=== PATIENT | female | born 1990 | race Caucasian/White ===

== ENCOUNTER → 2016-07-20 | Outpatient (CLI) | payer OTHER ==
--- NOTE | 2016-07-20 15:57 | DI ---
MRI LUMBAR SPINE SCAN WITHOUT IV CONTRAST, 07/20/2016 12:37 PM: Clinical History: Other complications of spinal and epidural anesthesia during labor and delivery. Previous Exam: None. Technique: Sagittal and axial T2 weighted; sagittal T1 weighted and T2 STIR; and axial PD. The vertebral bodies are of normal height and size. There is disc space narrowing at L1-2 and L2-3 wi th desiccation change. The remaining lumbar disc spaces are of normal height and signal pattern. The cord terminates at T12 and the conus medullaris is normal. The T10-11 through T12-L1 disc spaces are normal. T2-3 and T3-4 disc spaces show mild circumferentially bulging but not herniated discs without canal or neural foraminal stenosis. The disc spaces from L3-4 through L5-S1 are normal. There are no other extradural lesions. There are no intradural extramedullary or intramedullary lesions. Readin. There are minimally bulging but not herniated discs without canal or neural foraminal stenosis at T2-3 and T3-4. 2. The disc spaces from T10-11 through T12-L1 and from L3-4 through L5-S1 are normal.
== END ==
LOC: MRI 13:33
PROVIDERS: ATTEND Nurse Practitioner Family
DX: O74.6 Other complications of spinal and epidural anesthesia during labor and delivery (principal); M54.5 Low back pain; M47.814 Spondylosis without myelopathy or radiculopathy, thoracic region
CPT/HCPCS: 72148

== ENCOUNTER → 2016-08-27 | Outpatient (CLI) | payer OTHER ==
[2016-08-27 12:33] LABS: FREE T4 (FREE THYROXINE) 0.95 ng/dL (0.93-1.71)
== END ==
LOC: MOB LAB 11:01
PROVIDERS: ATTEND Family Medicine
DX: F33.1 Major depressive disorder, recurrent, moderate (principal)
CPT/HCPCS: 36415; 84439; 84443